=== PATIENT | female | born 1975 | race Caucasian/White ===

== ENCOUNTER 2019-08-19 19:30 | Inpatient (IN) | payer MEDICARE, MEDICAID ==
[~2019-08-19] VITALS: Ht 160 cm; Wt 83.5 kg
[2019-08-19 22:50] VITALS: BP 99/64
[2019-08-19 22:55] VITALS: BP 99/64
--- NOTE | 2019-08-19 22:55 | NUR ---
MS LIBRARY SERVICES DEAN NOTE RECEIVED PATIENT VIA GURNEY FROM 2 PANEL BUILDER. PATIENT IS A/OX4. ON OXYGEN 2L/MIN VIA NASAL CANNULA. NO S/S SOB NOTED. STATES PAIN IN LEFT HAND. IN NO APPARENT DISTRESS. IV ACCESS IN LEFT CHEST AND RIGHT CHEST BOTH PATENT AND SALINE LOCKED. RIGHT FEMORAL PERMA CATH PRESENT. LAST HD WAS 08/18/2019, 2L OUT, RECEIVES M,W,F. INITIAL ASSESSMENT COMPLETED AT THIS TIME. SKIN ASSESSMENT PARTIALLY COMPLETED D/T PATIENT WAS BEING CLEANS AND REFUSED OTHER PICTURES TO BE TAKEN UNTIL MORNING. WILL FOLLOW UP. VS AND BELONGINGS LIST COMPLETED BY COMPOSITION ROOFER. ORIENTS TO STAFF AND CALL LIGHT. BED IS LOW AND LOCKED, HOB IS ELEVATED IN SEMI FOWLERS, SIDE RIALS UP, BED ALARM ON. CALL LIGHT WITHIN REACH. WILL CONTINUE TO MONITOR.
[2019-08-20] MEDS ORDERED: MAGNESIUM HYDROXIDE 30 ML UDC PO PRN
[2019-08-20] MEDS ORDERED: ZOLPIDEM TARTRATE 5 MG TABLET PO PRN
[2019-08-20] MEDS ORDERED: ACETAMINOPHEN 325 MG TABLET PO PRN
[2019-08-20] MEDS ORDERED: DEXTROSE 50%-WATER 50 ML DISP.SYRIN IV PRN
[2019-08-20] MEDS ORDERED: ONDANSETRON HCL/PF 4 MG/2 ML VIAL IVP PRN
[2019-08-20] MEDS ORDERED: MAG HYDROX/AL HYDROX/SIMETH 30 ML UDC PO PRN
[2019-08-20] MEDS ORDERED: HYDR-4384 PO (00:08)
[2019-08-20] MEDS ORDERED: APIX2.5T PO (00:08)
[2019-08-20] MEDS ORDERED: LUBI24CA5 PO (00:08)
[2019-08-20] MEDS ORDERED: MIDO5TAB4 PO (00:08)
[2019-08-20] MEDS ORDERED: ATOR40TA PO (00:08)
[2019-08-20] MEDS ORDERED: ASPI-605 PO (00:08)
[2019-08-20] MEDS ORDERED: GABA-532 PO (00:08)
[2019-08-20] MEDS ORDERED: OMEP40CA13 PO (00:08)
[2019-08-20] MEDS ORDERED: MIDODRINE HCL (5MG) 5 MG TABLET PO ONE (02:00)
--- NOTE | 2019-08-20 02:43 | NUR ---
MS RN NOTE MD ORDERED MIDODRINE D/T PATIENT ADMITTING BLOOD PRESSURE BEING 99/64. RECEIVED CALL FROM [facility] FOR MD TO PLACE PARAMETERS FOR MEDICATION. SPOKE WITH MD AND ORDERED JUST GIVE AND NO PARAMETERS NEEDED AT THIS TIME. [facility] INFORMED TO PLEASE INSERT THE ORDER. MD MADE AWARE AND PLACED A DIFFERENT ORDER FOR SAME MED.
[2019-08-20] MEDS: MIDODRINE HCL (5MG) 5 MG TABLET PO SCH ×3 (05:40→21:22)
[2019-08-20] MEDS: MORPHINE SULFATE INJ 2 MG/ML DISP.SYRIN IV PRN ×2 (05:47→14:42)
--- NOTE | 2019-08-20 06:51 | NUR ---
MS RN NOTE PATIENT REFUSED TO TAKE REST OF PHOTOS FOR SKIN ISSUES.
[2019-08-20] MEDS: BLOOD SUGAR DIAGNOSTIC 1 EACH STRIP IN SCH ×5 (06:57→22:09)
--- NOTE | 2019-08-20 07:01 | NUR ---
MS RN NOTE PATIENT CHANGED HER MIND ABOUT ALLOWING TO TAKE PHOTOS. I WILL ENDORSE DAY SHIFT.
--- NOTE | 2019-08-20 07:14 | NUR ---
MS RN CLOSING NOTE PATIENT IN BED. A/OX4. ON OXYGEN 2L/MIN VIA NASAL CANNULA. NO SOB NOTED. PAIN MANAGED WITH MORPHINE 2MG. NO DISTRESS NOTED. IV ACCESS MAINTAINED IN LEFT CHEST AND RIGHT CHEST BOTH PATENT AND SALINE LOCKED. GOT AN ORDER FOR MIDLINE, PATIENT STILL NEEDS TO SIGN CONSENT, SHE IS HESITANT D/T KNOWING THERE WILL BE PAIN. RIGHT FEMORAL PERMA CATH PRESENT. PATIENT WANTS SKIN PICTURES CONDUCTED AFTER ALL. BED IS LOW AND LOCKED, HOB IS ELEVATED IN SEMI FOWLERS, SIDE RIALS UP, BED ALARM ON. CALL LIGHT WITHIN REACH. WILL ENDORSE TO NEXT SHIFT.
[2019-08-20 08:00] VITALS: BP 138/72
--- NOTE | 2019-08-20 08:00 | NUR ---
MS RN OPENING NOTES Received Patient asleep and resting in bed. A/O x 4. VS stable with no acute distress. Breathing even and unlabored on 2LPM via NC with no respiratory distress. Patient stated pain on left hand upon movement, otherwise Patient is comfortable. PIV on right chest and left chest clean, dry, intact and flushing well. Right femoral permacath, clean and intact. Safety precautions in place. Bed locked and set to lowest position with side rails x 2 up. All needs rendered at this time. Call light within reach. Will continue to monitor.
--- NOTE | 2019-08-20 08:35 | NUR ---
WOUND CARE CONSULT: PT REFUSED SKIN ASSESSMENT. PT COMPLAINING OF PAIN IN LEFT THUMB AND INDEX FINGER. RN TO DISCUSS WITH MD. RECOMMENDATIONS MADE FOR SKIN CARE AND PROTECTION BASED ON ADMISSION PHOTOS WHICH SHOW PURPLE INTACT AREAS TO BILATERAL HEELS AND RASHES TO GROIN, PERINEAL AND BUTTOCKS AREAS, PRESENT ON ADMISSION. DISCUSSED WITH NURSING STAFF. JOSE ISOFLEX LOW AIRLOSS BED TO BE PLACED. WILL SEE PRN. IN AGREEMENT WITH PLAN OF CARE. Addendum: 08/20/19 [address] Amended: Links added. Addendum: 08/20/19 at [address] SPOKE WITH DR FOSTER REGARDING PAIN IN LEFT THUMB AND INDEX FINGER. SHE WILL EVALUATE PT.
[2019-08-20] MEDS: PANTOPRAZOLE 40 MG TABLET.DR PO SCH (09:24)
[2019-08-20] MEDS: CLOTRIMAZOLE 1% 15 GM TUBE TP SCH ×2 (09:25→16:48)
--- NOTE | 2019-08-20 11:31 | NUR ---
MS RN NOTES Patient refused Midline Placement. Explained risks and benefits of Midline. Patient still refused. Patient in stable condition. Will continue to monitor.
[2019-08-20 11:53] LABS: BASOPHILS % (AUTO) 0.6 % (0.0-2.0); EOSINOPHILS % (AUTO) 4.1 % (0.0-6.0); HEMATOCRIT 32 % (33-45); HEMOGLOBIN 10.3 g/dL (11.5-14.8); LYMPHOCYTES # (AUTO) 1.1 /CMM (0.8-4.8); LYMPHOCYTES % (AUTO) 13.6 % (20.0-44.0); MEAN CORPUSCULAR HGB CONC 32 g/dl (31.0-36.0); MEAN CORPUSCULAR VOLUME 90 fL (82-100); MONOCYTES # (AUTO) 0.7 /CMM (0.1-1.30); MONOCYTES % (AUTO) 9.1 % (2.0-12.0); NEUTROPHILS # (AUTO) 5.8 /CMM (1.8-8.9); NEUTROPHILS % (AUTO) 72.6 % (43.0-81.0); PLATELET COUNT (AUTO) 251 /CMM (150-450)
[2019-08-20 12:00] LABS: CALCIUM, SERUM 10.3 mg/dL (8.5-10.1); POTASSIUM 4.4 mmol/L (3.5-5.1)
[2019-08-20] MEDS ORDERED: PIPERACILLIN /TAZOBACTAM 2.25 G in IV D5W 50 ML IV SCH (12:30)
[2019-08-20 12:50] LABS: MAGNESIUM 2.2 mg/dL (1.8-2.4)
--- NOTE | 2019-08-20 12:53 | NUR ---
PRELIM FINDINGS ON UPPER EXT VENOUS EXAM SHOWED POSITIVE FOR THROMBUS AT LT CEPH V, RT IJV, RT BRACH V. ADVISED RN OF INITIAL RESULTS.
[2019-08-20 12:55] LABS: CREATININE 12.4 mg/dL (0.6-1.3)
[2019-08-20 12:56] LABS: PHOSPHORUS 11.6 mg/dL (2.5-4.9)
[2019-08-20] MEDS ORDERED: HEPARIN INFUSION/D5W 500 ML IV PRN (13:00)
--- NOTE | 2019-08-20 13:08 | NUR ---
MS RN NOTES Notified Argenis YOUNG of critical labs, Phosphorous 11.6, Creatinine 12.4, and (+) for bilateral upper extremity DVT. Patient actively bleeding from the nose. Per MD, may discontinue IV Heparin Drip. Order noted and carried out. Patient in stable condition. Will continue to monitor.
[2019-08-20 16:00] VITALS: BP 94/46
[2019-08-20] MEDS ORDERED: LUBIPROSTONE PO SCH (17:00)
--- NOTE | 2019-08-20 17:25 | NUR ---
MS RN NOTES Patient refused CTA of Left Upper Extremity. Explained risks and benefits of procedure. Patient still refused. Patient in stable condition. Will continue to monitor.
[2019-08-20] MEDS: SEVELAMER CARBONATE 0.8 GM POWD.PACK GT SCH (17:28)
[2019-08-20] MEDS: ATORVASTATIN 40 MG TABLET PO SCH ×2 (17:28)
--- NOTE | 2019-08-20 17:28 | NUR ---
MS RN NOTES Patient undergoing dialysis at this time. Non-administered evening medications. Patient in stable condition. Will continue to monitor.
--- NOTE | 2019-08-20 17:30 | NUR ---
MS RN NOTES BS - 177, Patient refused insulin coverage. Patient in stable condition and undergoing dialysis at this time. Will continue to monitor.
[2019-08-20] MEDS: INSULIN REGULAR, HUMAN 100 UNIT/ML 3 ML VIAL SQ PRN ×2 (17:41→22:17)
--- NOTE | 2019-08-20 18:04 | NUR ---
MS RN NOTES Per plant inspector request, notified Argenis YOUNG for order of Benadryl 25mg IVP and 12.5GM Albumin 25% 100ml IV. Per MD, may place these orders. Orders noted and carried out. Patient in stable condition at this time. Will continue to monitor.
[2019-08-20] MEDS ORDERED: diphenhydrAMINE HCL 50 MG/ML VIAL IV ONE (18:30)
--- NOTE | 2019-08-20 18:43 | NUR ---
MS RN CLOSING NOTES Patient awake and resting in bed. A/O x 4. VS stable with no acute distress. Breathing even and unlabored on 2LPM via NC with no respiratory distress. Patient stated pain on left hand upon movement, otherwise Patient is comfortable. 22g PIV on right subclavian and 20g PIV on left subclavian clean, dry, intact and flushing well. Right femoral permacath, clean and intact. Safety precautions in place. Bed locked and set to lowest position with side rails x 2 up. All needs rendered at this time. Call light within reach. Will endorse plan of care to oncoming shift.
[2019-08-20] MEDS ORDERED: ALBUMIN 25% 12.5 GM/50 ML BOTTLE IV ONE (19:00)
[2019-08-20] MEDS ORDERED: ALBUMIN 25% 12.5 GM in PREMIX 1 EA IV ONE (19:00)
--- NOTE | 2019-08-20 19:44 | NUR ---
MS RN NOTES PATIENT IN BED, AWAKE, ALERT AND ORIENTED X 4. BREATHING EVEN AND UNLABORED ON NASAL CANNULA 2L. DENIES ACUTE PAIN, NO ACUTE RESPIRATORY DISTRESS. IV ON R CHEST 22G SL, AND L CHEST 20G SL, BOTH CLEAN DRY AND INTACT. SHOWS NO SIGNS OF INFILTRATION NO REDNESS. R FEMORAL PERMACATH CLEAN DRY AND INTACT. DIALYSIS COMPLETED 08/20 1L OUT AT 1830. SAFETY PRECAUTION IN PLACE. BED IN LOWEST POSITION, LOCKED, AND CALL LIGHT KEPT WITHIN REACH. WILL CONTINUE TO MONITOR.
[2019-08-20 20:00] VITALS: BP 103/62
--- NOTE | 2019-08-20 20:45 | NUR ---
Met with patient, she is alert, has hx of ESRD and Left BKA. States she resides with her mom in [place]. She was able to ambulate around household with her left prosthesis. She uses her wheelchair for outside household mobility. Available DME: glucometer, walker, shower chair and wheelchair. States she is independent with her adl's. She receives hemodialysis every MWF chairtime 3:30am at [facility] [phone] and has HD transportation. She plan to return home, family will provide ride when discharge. Addendum: 08/20/19 at 2045 by LEYDI NOYOLA RN Amended: Links added.
[2019-08-20] MEDS ORDERED: FEE PK DOSING 1 MIN EA MC ONE (20:46)
[2019-08-20] MEDS ORDERED: VANCOMYCIN POST DIALYSIS 500MG IV PRN ×2 (21:00)
[2019-08-20] MEDS ORDERED: VANCOMYCIN 1 GM in IV D5W 250ml IV ONE (21:00)
[2019-08-20] MEDS: GABAPENTIN 100 MG CAPSULE PO SCH ×2 (21:23)
[2019-08-21] MEDS: MIDODRINE HCL (5MG) 5 MG TABLET PO SCH ×3 (05:00→22:00)
[2019-08-21] MEDS: BLOOD SUGAR DIAGNOSTIC 1 EACH STRIP IN SCH ×4 (06:41→22:02)
[2019-08-21] MEDS: MORPHINE SULFATE INJ 2 MG/ML DISP.SYRIN IV PRN ×2 (07:02→17:30)
[2019-08-21] MEDS: INSULIN REGULAR, HUMAN 100 UNIT/ML 3 ML VIAL SQ PRN ×4 (07:11→22:05)
--- NOTE | 2019-08-21 07:19 | NUR ---
MS RN NOTES PATIENT IN BED, AWAKE, ALERT AND ORIENTED X 4. BREATHING EVEN AND UNLABORED ON NASAL CANNULA 2L. DENIES ACUTE PAIN, NO ACUTE RESPIRATORY DISTRESS. IV ON R CHEST 22G SL, AND L CHEST 20G SL, BOTH CLEAN DRY AND INTACT. SHOWS NO SIGNS OF INFILTRATION NO REDNESS. R FEMORAL PERMACATH CLEAN DRY AND INTACT. ALL DUE MEDICATIONS. PATIENT REFUSED REPOSITIONING. EDUCATED IMPORTANCE OF TURNING Q2H, PT STILL REFUSED. PATIENT REFUSED SKIN ASSESSMENT PICTURES. SAFETY PRECAUTION IN PLACE. BED IN LOWEST POSITION, LOCKED, AND CALL LIGHT KEPT WITHIN REACH. WILL CONTINUE TO MONITOR.
[2019-08-21 08:00] VITALS: BP 80/52
--- NOTE | 2019-08-21 08:00 | NUR ---
MS RN OPENING NOTES Received Patient asleep and resting in bed. A/O x 4. VS stable with no acute distress. Breathing even and unlabored on 2LPM via NC with no respiratory distress. No signs and symptoms of pain at this time. 20g PIV on right subclavian clean, dry, intact and flushing well. 22g PIV on left subclavian clean, dry, and intact but noted leaking upon flushing. Patient refused to remove PIV at this time. Right femoral permacath, clean and intact. Safety precautions in place. Bed locked and set to lowest position with side rails x 2 up. All needs rendered at this time. Call light within reach. Will continue to monitor.
[2019-08-21] MEDS: PANTOPRAZOLE 40 MG TABLET.DR PO SCH ×2 (08:57→10:15)
[2019-08-21] MEDS: SEVELAMER CARBONATE 0.8 GM POWD.PACK GT SCH (08:58)
[2019-08-21] MEDS: CLOTRIMAZOLE 1% 15 GM TUBE TP SCH ×2 (08:59→17:34)
--- NOTE | 2019-08-21 09:00 | NUR ---
MS RN NOTES Patient refused AM medications. Per Patient, "I am sleeping! I need to stretch before I do anything. I do not want to take my medications now." Explained risks and benefits of medications. Patient still refused at this time. Patient in stable condition and sleeping. Will continue to monitor.
[2019-08-21] MEDS: CINACALCET HCL 30 MG TABLET PO SCH ×2 (10:03→10:15)
[2019-08-21] MEDS: SEVELAMER CARBONATE 800 MG TABLET PO SCH ×2 (12:21→17:33)
[2019-08-21 16:00] VITALS: BP 95/59
[2019-08-21] MEDS: ATORVASTATIN 40 MG TABLET PO SCH (17:33)
--- NOTE | 2019-08-21 19:00 | NUR ---
RN MS OPENING NOTES RECEIVE PATIENT IN BED AWAKE ALERT AND ORIENTED X3, RESPIRATIONS EVEN AND UNLABORED WITH EQUAL RISE AND FALL OF CHEST, DENIES ANY PAIN OR DISCOMFORT AT THIS TIME, IV SITE TO LEFT SUBCLAVIAN #20 G INTACT AND PATENT, NO REDNESS, NO INFILTRATION PRESENT, LEFT SUBCLAVIAN #22 G INTACT AND PATENT , NO REDNESS, NO INFILTRATION PRESENT, HD SITE TO RIGHT FEMORAL INTACT DRESSING IS CLEAN AND DRY, ALL NEEDS ATTENDED AT THIS TIME, ORIENTED TO STAFF AND CALL LIGHT AND KEPT WITHIN REACH, SAFETY PRECAUTIONS IN PLACE, LOW BED AND LOCKED, WILL CONTINUE TO MONITOR FOR EFFECTIVENESS.
--- NOTE | 2019-08-21 19:38 | NUR ---
MS RN CLOSING NOTES Patient awake and resting in bed. A/O x 4. VS stable with no acute distress. Breathing even and unlabored on 2LPM via NC with no respiratory distress. No signs and symptoms of pain at this time. 20g PIV on right subclavian clean, dry, intact and flushing well. 22g PIV on left subclavian clean, dry, and intact but noted leaking upon flushing. Patient refused to remove PIV at this time. Right femoral permacath, clean and intact. Safety precautions in place. Bed locked and set to lowest position with side rails x 2 up. All needs rendered at this time. Call light within reach. Will endorse plan of care to oncoming shift.
[2019-08-21 20:00] VITALS: BP 119/74
[2019-08-21] MEDS: GABAPENTIN 100 MG CAPSULE PO SCH (22:00)
[2019-08-22] MEDS: MORPHINE SULFATE INJ 2 MG/ML DISP.SYRIN IV PRN ×3 (03:25→21:41)
--- NOTE | 2019-08-22 03:31 | NUR ---
rn ms notes patient complaint of pain to left hand 02/17 requesting for pain medication morphine, vs wnl morphine given as ordered patient repositioned, will continue to monitor for effectiveness.
[2019-08-22] MEDS: MIDODRINE HCL (5MG) 5 MG TABLET PO SCH ×3 (05:46→21:31)
[2019-08-22] MEDS: BLOOD SUGAR DIAGNOSTIC 1 EACH STRIP IN SCH ×4 (06:26→21:31)
[2019-08-22] MEDS: INSULIN REGULAR, HUMAN 100 UNIT/ML 3 ML VIAL SQ PRN ×4 (06:27→21:37)
--- NOTE | 2019-08-22 06:50 | NUR ---
RN MS OPENING NOTES PATIENT IN BED AWAKE ALERT AND ORIENTED X3, RESPIRATIONS EVEN AND UNLABORED WITH EQUAL RISE AND FALL OF CHEST, DENIES ANY PAIN OR DISCOMFORT AT THIS TIME, IV SITE TO LEFT SUBCLAVIAN #20 G INTACT AND PATENT, NO REDNESS, NO INFILTRATION PRESENT, LEFT SUBCLAVIAN #22 G INTACT AND PATENT , NO REDNESS, NO INFILTRATION PRESENT, HD SITE TO RIGHT FEMORAL INTACT DRESSING IS CLEAN AND DRY PER HD NURSE WILL NOTIFY AIR CONDITIONING UNIT TESTER MD OF MALFUNCTION CATHETER SITE AND UNABLE TO SO HD , ALL NEEDS ATTENDED AT THIS TIME, CALL LIGHT KEPT WITHIN REACH, SAFETY PRECAUTIONS IN PLACE, LOW BED AND LOCKED, WILL CONTINUE TO MONITOR FOR EFFECTIVENESS. BLOOD PRESSURE INCREASING AFTER HD ATTEMPT STOP TO 90/41, HR 85, ASYMPTOMATIC, PER PATIENT BLOOD PRESSURE USUALLY RUNS LOW. REMAINS STABLE AT THIS TIME.
--- NOTE | 2019-08-22 06:57 | NUR ---
RN MS NOTES HD NURSE UNABLE TO PROVIDED SCHEDULED DIALYSIS HD NURSE STATES" CATHETER SITE IS NOT WORKING AND WILL NOTIFY CRAFT DEMONSTRATOR MD" PATIENT HD ALSO STOPPED DUE TO DECREASE IN BP WHEN ATTEMPTED TO DO HD. WILL CONTINUE TO MONITOR AND ENDORSE TO NEXT SHIFT.
--- NOTE | 2019-08-22 07:35 | NUR ---
M/S RN NOTES PATIENT RESTING IN BED, NO RESPIRATORY DISTRESS, NO C/O PAIN AT THIS TIME. IV ACCESS SITES INTACT AND PATENT. PATIENT'S NEEDS ATTENDED, BED ON LOWEST LOCKED POSITION, CALL LIGHT WITHIN REACH. WILL CONTINUE TO MONITOR.
[2019-08-22 08:00] VITALS: BP 107/57
[2019-08-22] MEDS: SEVELAMER CARBONATE 800 MG TABLET PO SCH ×3 (08:44→17:22)
[2019-08-22] MEDS: CLOTRIMAZOLE 1% 15 GM TUBE TP SCH ×2 (08:45→17:24)
[2019-08-22] MEDS ORDERED: ALTEPLASE CATHFLO 2 MG/VIAL XX ONE ×2 (10:30→11:00)
--- NOTE | 2019-08-22 11:00 | NUR ---
M/S RN NOTES RONA ROBERTO AT BEDSIDE ADMINISTERING CATHFLO THROUGH PATIENT'S HD SITE.
[2019-08-22 12:15] LABS: BASOPHILS % (AUTO) 0.2 % (0.0-2.0); EOSINOPHILS % (AUTO) 3.9 % (0.0-6.0); HEMATOCRIT 24 % (33-45); HEMOGLOBIN 7.5 g/dL (11.5-14.8); LYMPHOCYTES # (AUTO) 1.3 /CMM (0.8-4.8); LYMPHOCYTES % (AUTO) 19.6 % (20.0-44.0); MEAN CORPUSCULAR HGB CONC 32 g/dl (31.0-36.0); MEAN CORPUSCULAR VOLUME 90 fL (82-100); MONOCYTES # (AUTO) 0.5 /CMM (0.1-1.30); MONOCYTES % (AUTO) 8.1 % (2.0-12.0); NEUTROPHILS # (AUTO) 4.5 /CMM (1.8-8.9); NEUTROPHILS % (AUTO) 68.2 % (43.0-81.0); PLATELET COUNT (AUTO) 224 /CMM (150-450); RED BLOOD CELL COUNT(AUTO) 2.63 MIL/uL (4.0-5.2); WHITE BLOOD COUNT (AUTO) 6.6 K/uL (4.3-11.0)
[2019-08-22 12:28] LABS: ALBUMIN 2.5 g/dL (3.4-5.0); BILIRUBIN,TOTAL 0.3 mg/dL (0.2-1.0); CALCIUM, SERUM 9.7 mg/dL (8.5-10.1); MAGNESIUM 2.3 mg/dL (1.8-2.4); POTASSIUM 4.4 mmol/L (3.5-5.1)
--- NOTE | 2019-08-22 12:30 | NUR ---
M/S RN NOTES REPORTED CRITICAL LAB VALUES BY DANIELLA CORREA 102, CREAT 13.9, PHOS 11.5. INFORMED WENDY BEE.
[2019-08-22 12:33] LABS: CREATININE 13.9 mg/dL (0.6-1.3); PHOSPHORUS 11.5 mg/dL (2.5-4.9)
[2019-08-22] MEDS ORDERED: EPOETIN ALFA (10,000 UNIT) 10,000 UNIT/ML VIAL IV ONE (15:00)
[2019-08-22] MEDS ORDERED: HEPARIN INFUSION/D5W 500 ML IV PRN (15:00)
[2019-08-22 16:00] VITALS: BP 112/56
[2019-08-22] MEDS: ATORVASTATIN 40 MG TABLET PO SCH (17:22)
[2019-08-22] MEDS: APIXABAN 2.5 MG TABLET PO SCH (17:23)
--- NOTE | 2019-08-22 18:40 | NUR ---
M/S RN NOTES PATIENT AWAKE IN BED, NO RESPIRATORY DISTRESS, NO C/O PAIN AT THIS TIME. SKIN WARM TO TOUCH. IV ACCESS SITES INTACT AND PATENT. PATIENT'S NEEDS ATTENDED, BED ON LOWEST LOCKED POSITION, CALL LIGHT WITHIN REACH. WILL ENDORSE TO ONCOMING NURSE.
[2019-08-22 20:00] VITALS: BP 112/79
[2019-08-22 20:40] VITALS: BP 112/79
[2019-08-22] MEDS: GABAPENTIN 100 MG CAPSULE PO SCH (21:31)
--- NOTE | 2019-08-22 21:41 | NUR ---
RN MS NOTES PATIENT COMPLAINT OF PAIN 8/10 TO LEFT HAND REQUESTING FOR MORPHINE VS WNL MORPHINE GIVEN ORDERED WILL CONTINUE TO MONITOR, REPOSITIONED FOR COMFORT.
--- NOTE | 2019-08-23 | NUR ---
RN MS OPENING NOTES PATIENT IN BED AWAKE ALERT AND ORIENTED X3, RESPIRATIONS EVEN AND UNLABORED WITH EQUAL RISE AND FALL OF CHEST, DENIES ANY PAIN OR DISCOMFORT AT THIS TIME, IV SITE TO LEFT SUBCLAVIAN #20 G INTACT AND PATENT, NO REDNESS, NO INFILTRATION PRESENT, LEFT SUBCLAVIAN #22 G INTACT AND PATENT , NO REDNESS, NO INFILTRATION PRESENT, HD SITE TO RIGHT FEMORAL INTACT DRESSING IS CLEAN AND DRY , ALL NEEDS ATTENDED AT THIS TIME, CALL LIGHT KEPT WITHIN REACH, SAFETY PRECAUTIONS IN PLACE, LOW BED AND LOCKED, WILL CONTINUE TO MONITOR.
--- NOTE | 2019-08-23 06:00 | NUR ---
RN MS NOTES PATIENT COMPLAINT OF PAIN TO LEFT HAND 7-03/20 REQUESTED FOR PAIN MEDICATION. MORPHINE PRN GIVEN ORDERED, VS WNL WILL CONTINUE TO MONITOR FOR EFFECTIVENESS.
[2019-08-23] MEDS: MORPHINE SULFATE INJ 2 MG/ML DISP.SYRIN IV PRN ×2 (06:02→11:18)
[2019-08-23] MEDS: MIDODRINE HCL (5MG) 5 MG TABLET PO SCH ×3 (06:02→21:57)
--- NOTE | 2019-08-23 06:27 | NUR ---
RN MS NOTES PATIENT REFUSED AM LABS ORDERED DESPITE EDUCATION, PATIENT STATES " THEY CAN DO THEM WITH DIALYSIS". ATTEMPTED TO EXPLAIN MD LAB ORDERS, PATIENT DID NOT WANT LABS DRAWN.
[2019-08-23] MEDS: INSULIN REGULAR, HUMAN 100 UNIT/ML 3 ML VIAL SQ PRN ×4 (06:33→22:49)
[2019-08-23] MEDS: BLOOD SUGAR DIAGNOSTIC 1 EACH STRIP IN SCH ×4 (06:43→22:36)
--- NOTE | 2019-08-23 07:30 | NUR ---
RN OPENING NOTES RECEIVED PATIENT IN BED RESTING. A/OX3, ABLE TO MAKE NEEDS KNOWN. NOT IN ANY FORM OF DISTRESS. NO SOB. DENIED PAIN OR DISCOMFORT AT THIS TIME. IV ACCESS INTACT AND PATENT. KEP TPATIENT SAFE AND COMFORTABLE. BED IN LOW/LOCKED POSITION, SIDERAILS UPX2, CALL LIGHT IN REACH. WILL CONTINUE TO MONITOR ACCORDINGLY.
[2019-08-23 08:00] VITALS: BP 114/71
[2019-08-23] MEDS: APIXABAN 2.5 MG TABLET PO SCH ×2 (09:00→17:00)
[2019-08-23] MEDS: CLOTRIMAZOLE 1% 15 GM TUBE TP SCH ×2 (09:41→18:06)
[2019-08-23] MEDS: PANTOPRAZOLE 40 MG TABLET.DR PO SCH (09:42)
[2019-08-23] MEDS: CINACALCET HCL 30 MG TABLET PO SCH (09:42)
[2019-08-23] MEDS: SEVELAMER CARBONATE 800 MG TABLET PO SCH ×4 (09:43→18:05)
--- NOTE | 2019-08-23 09:50 | NUR ---
RN NOTES PATIENT REFUSED ELIQUIS. EXPLAIN RISK AND BENEFIT BUT STILL REFUSED. PER PATIENT SHE'LL WAIT AFTER DIALYSIS.
[2019-08-23] MEDS: Z GUARD REMEDY 2 OZ OINT TP SCH ×2 (13:32→22:36)
[2019-08-23 16:00] VITALS: BP 123/70
[2019-08-23] MEDS: ATORVASTATIN 40 MG TABLET PO SCH ×2 (18:00→18:04)
--- NOTE | 2019-08-23 18:02 | NUR ---
rn notes patient noted having nosebleed. Jeevan Munguia DNP made aware. Per Jeevan, hold Eliquis for now and cont to monitor patient.
--- NOTE | 2019-08-23 19:35 | NUR ---
RN CLOSING NOTES PATIENT IN STABLE CONDITION. ALL NEEDS ATTENDED AND PROVIDED. ALL DUE MEDICATIONS GIVEN ORDERED. KEPT PATIENT SAFE AND COMFORTABLE. BED IN LOW/LOCKED POSITION. SIDERAILS UPX2, CALL LIGHT IN REACH. ENDORSED TO KELVIN REA FOR ALYSSA.
[2019-08-23 20:00] VITALS: BP 122/83
[2019-08-23 20:37] VITALS: BP 112/73
[2019-08-23] MEDS: GABAPENTIN 100 MG CAPSULE PO SCH (21:57)
--- NOTE | 2019-08-23 22:07 | NUR ---
RN MS NOTES PATIENT REQUESTED FOR BENADRYL IV STATES SHE GETS ANXIOUS AND MUST HAVE IT HD NURSE REQUEST FOR ALBUMIN PANKAJ MADE AWARE NEW ORDER FOR 25% ALBUMIN 100ML WITH HD AND BENADRYL 25MG IV Q6HR PRN
[2019-08-23] MEDS ORDERED: diphenhydrAMINE HCL 50 MG/ML VIAL IV PRN (22:30)
[2019-08-23] MEDS ORDERED: ALBUMIN 25% 25 GM in PREMIX 1 EA IV PRN (22:30)
[2019-08-23 22:38] LABS: BASOPHILS % (AUTO) 0.5 % (0.0-2.0); HEMATOCRIT 26 % (33-45); HEMOGLOBIN 8.2 g/dL (11.5-14.8); LYMPHOCYTES # (AUTO) 1.2 /CMM (0.8-4.8); LYMPHOCYTES % (AUTO) 15.4 % (20.0-44.0); MEAN CORPUSCULAR HGB CONC 32 g/dl (31.0-36.0); MEAN CORPUSCULAR VOLUME 90 fL (82-100); MONOCYTES # (AUTO) 0.4 /CMM (0.1-1.30); MONOCYTES % (AUTO) 5.3 % (2.0-12.0); NEUTROPHILS # (AUTO) 5.9 /CMM (1.8-8.9); NEUTROPHILS % (AUTO) 76.8 % (43.0-81.0); PLATELET COUNT (AUTO) 316 /CMM (150-450); RED BLOOD CELL COUNT(AUTO) 2.85 MIL/uL (4.0-5.2); WHITE BLOOD COUNT (AUTO) 7.7 K/uL (4.3-11.0)
[2019-08-23] MEDS ORDERED: ALBUMIN 25% 100 ML IV ONE (22:51)
[2019-08-23 22:56] LABS: ALBUMIN 2.6 g/dL (3.4-5.0); BILIRUBIN,TOTAL 0.4 mg/dL (0.2-1.0); CALCIUM, SERUM 9.3 mg/dL (8.5-10.1); MAGNESIUM 2.3 mg/dL (1.8-2.4); POTASSIUM 5.3 mmol/L (3.5-5.1); TOTAL PROTEIN, SERUM 8.4 g/dL (6.4-8.2)
[2019-08-23 23:01] LABS: CREATININE 15.9 mg/dL (0.6-1.3)
--- NOTE | 2019-08-23 23:08 | NUR ---
RN MS NOTES RECEIVED CALL FROM LAB WITH CRITICAL RESULTS FOR BUN 118, CREATINE 15.9, PHOS 12.9, PATIENT IS GETTING DIALYSIS AT THIS TIME, NO FURTHER ORDERS.
[2019-08-23] MEDS ORDERED: MORPHINE SULFATE INJ 2 MG/ML DISP.SYRIN IV PRN (23:30)
[2019-08-23] MEDS ORDERED: HYDROMORPHONE INJ 0.5 MG/0.5 ML SYRINGE IV PRN (23:30)
[2019-08-23] MEDS ORDERED: KETOROLAC TROMETHAMINE INJ 30 MG/ML VIAL IV PRN (23:30)
--- NOTE | 2019-08-24 05:58 | NUR ---
rn ms notes refused am labs.despite education
[2019-08-24] MEDS: MIDODRINE HCL (5MG) 5 MG TABLET PO SCH ×3 (06:04→21:46)
[2019-08-24] MEDS: BLOOD SUGAR DIAGNOSTIC 1 EACH STRIP IN SCH ×4 (06:48→22:01)
[2019-08-24] MEDS: INSULIN REGULAR, HUMAN 100 UNIT/ML 3 ML VIAL SQ PRN ×3 (06:50→22:05)
--- NOTE | 2019-08-24 07:04 | NUR ---
RN MS CLOSING NOTES PATIENT IN BED AWAKE ALERT AND ORIENTED X3, RESPIRATIONS EVEN AND UNLABORED WITH EQUAL RISE AND FALL OF CHEST, DENIES ANY PAIN OR DISCOMFORT AT THIS TIME, IV SITE TO LEFT SUBCLAVIAN #20 G INTACT AND PATENT, NO REDNESS, NO INFILTRATION PRESENT, LEFT SUBCLAVIAN #22 G INTACT AND PATENT , NO REDNESS, NO INFILTRATION PRESENT, HD SITE TO RIGHT FEMORAL INTACT DRESSING IS CLEAN AND DRY , ALL NEEDS ATTENDED AT THIS TIME, CALL LIGHT KEPT WITHIN REACH, SAFETY PRECAUTIONS IN PLACE, LOW BED AND LOCKED, WILL CONTINUE TO MONITOR AND ENDORSE TO NEXT SHIFT, ALL NEEDS WERE ATTENDED. NO CHANGES NOTED THROUGH SHIFT. TOLERATED HD WELL.
--- NOTE | 2019-08-24 07:15 | NUR ---
MS RN NOTES PATIENT IN BED ALERT ORIENTED X 4. NO ACUTE DISTRESS NOTED. BREATHING UNLABORED. NO SOB NOTED.SAFETY MEASURES IN PLACE. CALL LIGHT WITHIN REACH. WILL CONTINUE TO MONITOR ACCORDINGLY.
--- NOTE | 2019-08-24 07:21 | NUR ---
RN MS NOTES BM NOTED HANK LIKE , NO WATERY STOOL NOTED THIS SHIFT.
[2019-08-24] MEDS: PANTOPRAZOLE 40 MG TABLET.DR PO SCH (07:30)
[2019-08-24 08:00] VITALS: BP 76/43
[2019-08-24] MEDS: SEVELAMER CARBONATE 800 MG TABLET PO SCH ×3 (08:00→18:00)
--- NOTE | 2019-08-24 08:00 | NUR ---
MS RN NOTES PATIENT REFUSED TO TAKE PANTOPRAZOLE AND RENVELA DESPITE OF EXPLANATION OF RISKS AND BENEFITS.
--- NOTE | 2019-08-24 08:08 | NUR ---
MS REA NOTES PATIENT CAME BACK FROM RECOVERY ROOM WITH STABLE VITAL SIGNS. ALERT ORIENTED X 4. NO ACUTE DISTRESS NOTED. BREATHING UNLABORED. DENIED ANY PAIN AT THIS TIME. WITH ABDOMINAL 3 SURGICAL DRESSING CLEAN DRY AND INTACT. RECEIVED NEW ORDERS FROM ASIYA BAUTISTA, NOTED AND CARRIED OUT. SAFETY MEASURES IN PLACE. WILL CONTINUE TO MONITOR ACCORDINGLY. Addendum: 08/24/19 at 0828 by JOSE TELLO RN DISREGARD ABOVE NOTES, WRONG PATIENT.
[2019-08-24] MEDS: CINACALCET HCL 30 MG TABLET PO SCH (09:00)
[2019-08-24] MEDS: APIXABAN 2.5 MG TABLET PO SCH ×2 (09:00→17:00)
--- NOTE | 2019-08-24 09:00 | NUR ---
MS RN NOTES PATIENT REFUSED TO TAKE MEDICATIONS DESPITE OF EXPLANATION OF RISKS AND BENEFITS. HOLD ELIQUIS PER MD ORDER DUE TO NOSE BLEED EPISODE YESTERDAY.
[2019-08-24] MEDS: CLOTRIMAZOLE 1% 15 GM TUBE TP SCH ×2 (09:06→17:00)
[2019-08-24] MEDS: Z GUARD REMEDY 2 OZ OINT TP SCH ×2 (09:06→21:46)
--- NOTE | 2019-08-24 10:21 | NUR ---
MS RN NOTES SEEN AND EVALUATED BY DR GEORGIANA MINER WITH NEW ORDERS MADE FOR STAT EKG. PATIENT NOTED WITH LOW BLOOD PRESSURE, REFUSING BLOOD DRAW, REFUSING MEDICATION TAKEN AND REFUSING HEMODIALYSIS DESPITE OF EXPLANATION OF RISKS AND BENEFITS, DR MINER AWARE AND DR HAILEY MARCANO MADE AWARE PRESENT ON THE FLOOR.
[2019-08-24 10:25] VITALS: BP 84/64
--- NOTE | 2019-08-24 10:30 | NUR ---
MS RN NOTES [facility] NURSE CALLED REGARDING PATIENT NOTIFIED INFECTION CONTROL PAZ REA SAID SHE WILL TAKE CARE OF IT AND FOLLOW UP WITH [facility] NURSE.
[2019-08-24] MEDS: HYDROCORTISONE SOD SUCCINATE 100 MG/2 ML VIAL IV SCH ×3 (11:00→18:00)
--- NOTE | 2019-08-24 11:20 | NUR ---
MS RN NOTES PATIENT TRANSFER TO DANE ROOM 118-2 VIA ACLS WITH STABLE VITAL SIGNS. NO ACUTE RESPIRATORY DISTRESS NOTED, BREATHING UNLABORED. PATIENT ALERT ORIENTED X 4, DENIED ANY PAIN. REPORT GIVEN TO DAMARI REA, RN VERBALIZED UNDERSTANDING. ALL BELONGINGS TAKEN WITH THE PATIENT. SAFETY MEASURES IN PLACE.
--- NOTE | 2019-08-24 11:25 | NUR ---
MS RN NOTE: PATIENT TRASFERRED TO ROOM 118-2. IN STABLE CONDITION, NOTED REFUSAL WITH BODY CHECK, PROCEDURES AND HX TAKING
--- NOTE | 2019-08-24 11:26 | NUR ---
RN NOTE: SPOKE TO DR. MEDINA ABOUT PATIENT'S REFUSAL OF LAB DRAWS ORDERED. ACKNOWLEDGED SITUATION AND ORDERED FOR PSYCH CONSULT.
[2019-08-24 12:00] VITALS: BP 91/25
--- NOTE | 2019-08-24 14:00 | NUR ---
rn note: patient refused due medication for 1300, refused insulin for blood sugar of 341. risks and benefits explained, offered x3. still refused,.
[2019-08-24 16:00] VITALS: BP 113/37
--- NOTE | 2019-08-24 18:30 | NUR ---
RN NOTE: PAGED DR. DONALDSON TO INFORM OF PATIENT'S BLOOD SUGAR LEVEL OF 408. PATIENT PRESENTING WITH NO ADVERSE S/SX OF HYPERGLYCEMIA. 10 UNITS OF REG INSULIN PER SLIDING SCALE GIVEN. AWAITING CALL BACK.
--- NOTE | 2019-08-24 18:38 | NUR ---
RN NOTE: DR. DONALDSON CALLED BACK. INFORMED OF SITUATION. ACKNOWLEDGED AND INFORMED TO CONTINUE MONITORING BLOOD SUGAR OF PATIENT.
--- NOTE | 2019-08-24 19:00 | NUR ---
RN NOTE: PATIENT INITIALLY AGREED FOR RENVELA ADMINISTRATION BUT CHANGED MIND DURING ADMINISTRATION. OPENED TABLETS WASTED AND UNOPENED MEDICATIONS RETURNED. WITNESSED BY RONA CHICAS
--- NOTE | 2019-08-24 19:20 | NUR ---
MS RN CLOSING NOTES: PATIENT IN BED ASLEEP AND AROUSES EASILY TO VERBAL STIMULI. ON O2 VIA NC @ 2LPM, TOLERATING WELL. BREATHING EVEN AND UNLABORED, NO SOB/ACUTE DISTRESS NOTED AT THIS TIME, IV SITE TO RIGHT SUBCLAVIAN #20 G AND LEFT SUBCLAVIAN #22 PATENT AN INTACT. HD SITE TO RIGHT FEMORAL IN PLACE. NO PAIN REPORTED AT THIS TIME. NEEDS ATTENDED AND ANTICIPATED. PATIENT WITH NO FOOD INTAKE FOR LUNCH AND DINNER DUE TO REFUSAL. CONTINUED BLOOD SUGAR MONITORING FOR PATIENT PER DR. DONALDSON. DR. ALFARO AWARE OF PATIENT'S LATEST HEMODIALYSIS REFUSAL. CALL LIGHT WITHIN REACH, SAFETY PRECAUTIONS IN PLACE, BED LOCKED, LOW POSITION AND AT SEMI-LEAHY'S POSITION. ENDORSED TO NIGHT NURSE FOR ALYSSA.
--- NOTE | 2019-08-24 19:30 | NUR ---
RONA MS CLOSING NOTES, PATIENT IN BED ASLEEP BUT AROUSES EASILY TO VERBAL STIMULI, , BREATHING EVEN AND UNLABORED, NO SOB/ACUTE DISTRESS NOTED AT THIS TIME, IV SITE TO LEFT SUBCLAVIAN #20 G AND LEFT SUBCLAVIAN #22 PATENT AN INTACT, HD SITE TO RIGHT FEMORAL IN PLACED, CALL LIGHT WITHIN REACH, SAFETY PRECAUTIONS IN PLACE, BED LOCKED AND LOW POSITION, WILL CONTINUE TO MONITOR CLOSELY. Addendum: 08/24/19 at 2044 by DEVORAH MARADIAGA RN PATIENT WITH PENDING PSYCH CONSULT. AWAITING PROVIDER VISIT.
[2019-08-24] MEDS: GABAPENTIN 100 MG CAPSULE PO SCH (21:56)
[2019-08-25] VITALS: BP 99/41
[2019-08-25 04:00] VITALS: BP 92/46
[2019-08-25] MEDS: MIDODRINE HCL (5MG) 5 MG TABLET PO SCH ×3 (05:23→21:25)
--- NOTE | 2019-08-25 07:00 | NUR ---
PERSONAL INJURY ATTORNEY NOTES PATIENT IS AWAKE BUT EASILY WOKEN PATIENT IS ON 2L OXYGEN SATURATING WELL. , BREATHING EVEN AND UNLABORED, NO SOB/ACUTE DISTRESS NOTED AT THIS TIME, IV SITE TO LEFT SUBCLAVIAN #20 G AND LEFT SUBCLAVIAN #22 PATENT AN INTACT, PATIENT SKIN HAS SACRAL WOUNDS AND PERINEAL WOUNDS. PATIENT ALSO HAS RIGHT HEEL REDNESS. PATIENT HAS LEFT BELOW THE KNEE AMPUTEE . LEFT HAND CELLULITIS AND HARD TO MOVE. PATIENT COMPLAINS OF HAVING TROUBLE MOVING IT . AT TIMES PATIENT IS COMPLIANT BUT OTHER TIMES IS NOT COMPLIANT WITH CARE HD SITE TO RIGHT FEMORAL IN PLACED, CALL LIGHT WITHIN REACH, SAFETY PRECAUTIONS IN PLACE, BED LOCKED AND LOW POSITION, WILL CONTINUE TO MONITOR CLOSELY.
--- NOTE | 2019-08-25 07:05 | NUR ---
RN NOTES, NO SIGNIFICANT CHANGE IN CONDITION, CONTINUE NPO FOR FURTHER EVALUATION, REFUSED BLOOD DRAWN THIS MORNING, WILL ENDORSE CONTINUITY OF CARE TO ONCOMING NURSE.
[2019-08-25] MEDS: PANTOPRAZOLE 40 MG TABLET.DR PO SCH (07:30)
[2019-08-25 08:00] VITALS: BP 100/30
[2019-08-25] MEDS: SEVELAMER CARBONATE 800 MG TABLET PO SCH ×4 (08:00→18:50)
[2019-08-25] MEDS: Z GUARD REMEDY 2 OZ OINT TP SCH ×2 (09:00→21:48)
[2019-08-25] MEDS: CLOTRIMAZOLE 1% 15 GM TUBE TP SCH ×2 (09:00→18:49)
[2019-08-25] MEDS: CINACALCET HCL 30 MG TABLET PO SCH ×2 (09:00→09:38)
[2019-08-25] MEDS: APIXABAN 2.5 MG TABLET PO SCH ×3 (09:00→18:49)
[2019-08-25] MEDS: HYDROCORTISONE SOD SUCCINATE 100 MG/2 ML VIAL IV SCH ×4 (09:00→18:49)
[2019-08-25] MEDS: BLOOD SUGAR DIAGNOSTIC 1 EACH STRIP IN SCH ×4 (09:37→21:42)
[2019-08-25] MEDS: INSULIN REGULAR, HUMAN 100 UNIT/ML 3 ML VIAL SQ PRN ×3 (09:48→21:56)
[2019-08-25] MEDS ORDERED: ALTEPLASE CATHFLO 2 MG/VIAL XX ONE (11:30)
[2019-08-25 12:00] VITALS: BP 97/54
[2019-08-25] MEDS ORDERED: QUETIAPINE FUMARATE 25 MG TABLET PO PRN (14:30)
[2019-08-25] MEDS ORDERED: MORPHINE SULFATE IR 15 MG TABLET PO PRN (14:30)
[2019-08-25 16:00] VITALS: BP_SYST 83; BP_SYST 98; BP_DIAS 36; BP_DIAS 54
--- NOTE | 2019-08-25 18:56 | NUR ---
HERPETOLOGIST NOTES -BS PATIENT BS 479 GIVEN 10 UNITS AND CALL MD PER HOSPITAL PROTOCOL ORDERED RANDOM GLUCOSE STAT
--- NOTE | 2019-08-25 19:10 | NUR ---
RN OPENING NOTE RECEIVED PATIENT IN BED RESTING, WATCHING TV. A&O X4. ABLE TO MAKE NEEDS KNOWN. BREATHING IS EVEN AND NON LABORED. NO SOB NOTED AT THIS TIME. WILL CONTINUE TO MONITOR.
--- NOTE | 2019-08-25 19:30 | NUR ---
RN MS CLOSING NOTES, PATIENT IN BED ASLEEP BUT AROUSES EASILY TO VERBAL STIMULI, , BREATHING EVEN AND UNLABORED, NO SOB/ACUTE DISTRESS NOTED AT THIS TIME, IV SITE TO LEFT SUBCLAVIAN #20 G AND LEFT SUBCLAVIAN #22 PATENT AN INTACT, HD SITE TO RIGHT FEMORAL IN PLACED, CALL LIGHT WITHIN REACH, SAFETY PRECAUTIONS IN PLACE, BED LOCKED AND LOW POSITION, WILL CONTINUE TO MONITOR CLOSELY.
[2019-08-25 20:00] VITALS: BP 94/66
--- NOTE | 2019-08-25 21:40 | NUR ---
RN NOTE PATIENT COMPLAINED OF 8/10 ACHING PAIN ON LEFT HAND. MORPHINE 30 MG PRN PO GIVEN ORDERED AND TOLERATED WELL. WILL CONTINUE TO MONITOR.
--- NOTE | 2019-08-25 22:00 | NUR ---
RN NOTE PATIENT'S BLOOD SUGAR IS 473 MG/DL. CALLED AND NOTIFIED JORGE KENNEDY NP. RECEIVED ORDERS TO ADMINISTER 10 UNITS OF HUMULIN R INSULIN AND CHANGE INSULIN SLIDING SCALE FROM MILD TO AGGRESSIVE. ORDERS NOTED AND CARRIED OUT. WILL CONTINUE TO MONITOR.
[2019-08-25] MEDS: GABAPENTIN 100 MG CAPSULE PO SCH (22:47)
[2019-08-25] MEDS ORDERED: DEXTROSE 50%-WATER 50 ML DISP.SYRIN IV PRN (23:30)
[2019-08-26] VITALS (7 sets, daily range): BP systolic 83–105; BP diastolic 44–62
--- NOTE | 2019-08-26 02:00 | NUR ---
RN NOTE PATIENT REFUSED RANDOM BLOOD GLUCOSE LEVEL X3. PATIENT IS A&O X4. INFORMED PATIENT OF RISKS AND BENEFITS, STILL PATIENT REFUSED. WILL CONTINUE TO MONITOR.
[2019-08-26] MEDS: MIDODRINE HCL (5MG) 5 MG TABLET PO SCH ×3 (04:27→21:53)
--- NOTE | 2019-08-26 07:30 | NUR ---
RN CLOSING NOTE PATIENT IS IN BED RESTING WITH HOB ELEVATED. A&O X4. BREATHING IS EVEN AND NON LABORED. IN NO APPARENT DISTRESS. ALL DUE MEDS GIVEN AND TOLERATED WELL. PATIENT IS KEPT CLEAN, DRY, AND COMFORTABLE. PATIENT REFUSED RANDOM BLOOD GLUCOSE LAB THIS SHIFT X3. CALL LIGHT IS WITHIN EASY REACH. ENDORSED TO AM SHIFT RN FOR CONTINUATION OF CARE.
--- NOTE | 2019-08-26 07:30 | NUR ---
RN OPENING NOTES RECEIVED PT IN BED,RESTING COMFORTABLE. RESPIRATION EVEN AND UNLABORED. NO SOB NOTED. DENIES ANY PAIN OR DISCOMFORT AT THE MOMENT. IV ACCESS ON L AND RIGHT SUBCLAVIAN , PATENT AND INTACT. CALL LIGHT WITHIN EASY REACH, WILL CONTINUE TO MONITOR
--- NOTE | 2019-08-26 08:00 | NUR ---
RN NOTES CRITICAL BLOOD SUGAR OF 499 MG/DL, NOTIFIED MD AND INFORMED CHARGE NURSE. CALLED PHARMACY TO BRINGTHE INSULIN.
[2019-08-26] MEDS: BLOOD SUGAR DIAGNOSTIC 1 EACH STRIP IN SCH ×4 (08:03→22:10)
[2019-08-26] MEDS: PANTOPRAZOLE 40 MG TABLET.DR PO SCH (08:15)
[2019-08-26] MEDS: INSULIN REGULAR, HUMAN 100 UNIT/ML 3 ML VIAL SQ PRN ×3 (09:10→17:32)
[2019-08-26] MEDS: SEVELAMER CARBONATE 800 MG TABLET PO SCH ×3 (09:16→18:00)
[2019-08-26] MEDS: HYDROCORTISONE SOD SUCCINATE 100 MG/2 ML VIAL IV SCH ×3 (09:16→17:26)
[2019-08-26] MEDS: APIXABAN 2.5 MG TABLET PO SCH ×2 (09:18→17:27)
[2019-08-26] MEDS: CLOTRIMAZOLE 1% 15 GM TUBE TP SCH ×2 (09:24→17:40)
[2019-08-26] MEDS: Z GUARD REMEDY 2 OZ OINT TP PRN ×2 (09:24→22:01)
[2019-08-26] MEDS: Z GUARD REMEDY 2 OZ OINT TP SCH ×2 (09:25→21:00)
[2019-08-26 09:50] LABS: CALCIUM, SERUM 8.9 mg/dL (8.5-10.1)
[2019-08-26 09:56] LABS: POTASSIUM 6.2 mmol/L (3.5-5.1)
[2019-08-26 09:57] LABS: CREATININE 11.8 mg/dL (0.6-1.3)
[2019-08-26] MEDS: INSULIN NPH, HUMAN ISOPHANE 100 UNIT/ML VIAL SQ SCH ×2 (12:40→17:30)
--- NOTE | 2019-08-26 18:00 | NUR ---
RN CLOSING NOTES PATIENT IN BED, RESTING COMFORTABLY. NO SOB NOTED. DENIES ANY PAIN AT THE MOMENT. NO BOWEL MOVEMENT DURING AM SHIFT. HAD DIALYSIS TODAY AND TOOK 2L. REPOSITIONED PER PROTOCOL. KEPT CLEAN AND DRY. ALL NEEDS MET. ENDORSED TO PM RN.
--- NOTE | 2019-08-26 20:20 | NUR ---
MONTESSORI TEACHER OPENING NOTES PATIENT RECEIVED RESTING IN BED A/O x3. PATIENT ON 2L OF O2 VIA NC BREATHING EVEN AND UNLABORED, NO SOB NOTED. NO SIGNS OF ACUTE DISTRESS. NO CURRENT COMPLAINTS OF PAIN OR DISCOMFORT. IV LOCATED ON L AND R SUBCLAVIAN AND PERMA CATH NOTED ON R FEMORAL. SAFETY PRECAUTIONS IN PLACE WITH BED IN LOWEST POSITION, CALL LIGHT WITHIN REACH, BREAKS ON, SIDE RAILS UP X2. WILL CONTINUE TO MONITOR.
[2019-08-26] MEDS: GABAPENTIN 100 MG CAPSULE PO SCH (21:53)
[2019-08-26] MEDS: *INSULIN REGULAR(HUMULIN R)HUM 100 UNIT/ML VIAL SQ PRN (22:14)
--- NOTE | 2019-08-26 22:20 | NUR ---
FILM TOUCH UP INSPECTOR NOTES PATIENT BLOOD SUGAR 234, 4 UNITS OF INSULIN GIVEN.
[2019-08-27] VITALS: BP 83/62
[2019-08-27 04:00] VITALS: BP 91/51
[2019-08-27] MEDS: MIDODRINE HCL (5MG) 5 MG TABLET PO SCH ×3 (04:46→21:25)
[2019-08-27] MEDS: BLOOD SUGAR DIAGNOSTIC 1 EACH STRIP IN SCH ×4 (06:30→22:05)
[2019-08-27] MEDS: INSULIN REGULAR, HUMAN 100 UNIT/ML 3 ML VIAL SQ PRN ×2 (06:33→11:43)
--- NOTE | 2019-08-27 06:35 | NUR ---
TIRE BUILDER OPERATOR CLOSING NOTES PATIENT CURRENTLY RESTING IN BED A/O X 3. ON 2L OF O2 VIA NC BREATHING EVEN AD UNLABORED. TELE RADING SINUS RHYTHM WITH INVERTED P WAVES AT 73 HR. IV LOCATED ON L AND R SUBCLAVIAN. PERMACATH LOCATED ON RIGHT FEMORAL. PATIENT WAS KEPT CLEAN AND DRY THROUGHOUT THE NIGHT, ALL NEEDS ATTENDED TO. WOUND CARE WAS DONE. SAFETY PRECAUTIONS IN PLACE WITH BED IN LOWEST POSITION, BREAKS ON, SIDE RAILS UP X2, AND CALL LIGHT WITHIN REACH. WILL ENDORSE TO ONCOMING SHIFT ABOUT ALYSSA.
[2019-08-27 08:00] VITALS: BP 110/68
[2019-08-27] MEDS: HYDROCORTISONE SOD SUCCINATE 100 MG/2 ML VIAL IV SCH ×3 (09:23→17:29)
[2019-08-27] MEDS: SEVELAMER CARBONATE 800 MG TABLET PO SCH ×3 (09:23→17:29)
[2019-08-27] MEDS: PANTOPRAZOLE 40 MG TABLET.DR PO SCH (09:23)
[2019-08-27] MEDS: CINACALCET HCL 30 MG TABLET PO SCH (09:24)
[2019-08-27] MEDS: APIXABAN 2.5 MG TABLET PO SCH ×2 (09:24→17:32)
[2019-08-27] MEDS: INSULIN NPH, HUMAN ISOPHANE 100 UNIT/ML VIAL SQ SCH ×2 (09:26→17:53)
[2019-08-27] MEDS: CLOTRIMAZOLE 1% 15 GM TUBE TP SCH ×2 (09:31→17:29)
[2019-08-27] MEDS: Z GUARD REMEDY 2 OZ OINT TP SCH ×2 (09:31→21:54)
[2019-08-27 12:00] VITALS: BP 128/72
--- NOTE | 2019-08-27 12:00 | NUR ---
RN NOTE PAITNET TRANSFERED TO RONA HOOKER. PATIENT ALERT ORIENTED STABLE AD ALL NEEDS MET AT THIS TIME TO GET DIALIZED TODAY. DIAPER IV PATENT SUBCLAVIAN IV PATENT AND FLUSHING. ALL NEEDS MET ENDORSED TO MACHINE LOAD CLERK.
[2019-08-27 13:50] LABS: CALCIUM, SERUM 8.5 mg/dL (8.5-10.1); CREATININE 5.2 mg/dL (0.6-1.3); POTASSIUM 3.2 mmol/L (3.5-5.1)
[2019-08-27 16:00] VITALS: BP 118/68
--- NOTE | 2019-08-27 19:13 | NUR ---
RN NOTES: RECEIVED AWAKE ON BED, A/OX3-4, COMMUNICATE WELL AND VERBALIZE NEEDS,ON TELE MONITOR -[id number], ON O2 AT 2L/MIN VIA NC SPO2-99%, LEFT SUBCLAVIAN CATH G#22, RIGHT SUBCLAVIAN CATH G#20,ON HEMODIALYSIS,DONE TODAY,NO-OUTPUT; RIGHT FEMORAL CATH DRESSING INTACT,ANURIC. ISOLATION PRECAUTION FOR MRSA-NARES, ORIENTED TO UNIT AND STAFF, BED LOW AND LOCKED, CALL LIGHT WITHIN EASY REACH, FALL,SAFETY AND ASPIRATION PRECAUTION OBSERVED. LEFT ARM KEPT ELEVATED ABOVE THE HEART.
--- NOTE | 2019-08-27 19:30 | NUR ---
RN CLOSING NOTE RN ENDORSE TO PRESS SHOP SUPERVISOR. IVS FLUSHING ALLL NEEDS MET DIALIZED 0 OUT TODAY. ISHMAEL OK FOR D/C TOMORROW IF PRIMARY OK TO D/C . ENDORSE TO PRESS SHOP SUPERVISOR
[2019-08-27 20:00] VITALS: BP 104/50
[2019-08-27] MEDS: GABAPENTIN 100 MG CAPSULE PO SCH (21:26)
[2019-08-27] MEDS: *INSULIN REGULAR(HUMULIN R)HUM 100 UNIT/ML VIAL SQ PRN (22:08)
--- NOTE | 2019-08-27 22:10 | NUR ---
RN NOTES: BLOOD SUGAR CHECK 326, INSULIN GIVEN PER SCALE, WILL CONTINUE TO MONITOR FOR SIGN OF HYPER/HYPOGLYCEMIA.
[2019-08-28] VITALS: BP 126/52
[2019-08-28 04:00] VITALS: BP 110/42
[2019-08-28] MEDS: MIDODRINE HCL (5MG) 5 MG TABLET PO SCH ×2 (06:13→13:45)
--- NOTE | 2019-08-28 06:13 | NUR ---
RN NOTES: UNABLE TO GIVE MIDODRINE ON TIME BECAUSE PATIENT REFUSE TO WAKE AT 0500, SHE ONLY WANT TO TAKE HER MEDICATION AFTER 0600.GIVEN.
--- NOTE | 2019-08-28 06:28 | NUR ---
RN NOTES: TRIED TO WAKE HER UP TO DO MORNING AND CARE AND DRESSING, DONE 2X AND SHE STRONGLY REFUSED, SHE ONLY WANT TO DO IT LATER AFTER HER BREAKFAST. THEN SHE GO BACK TO SLEEP.
--- NOTE | 2019-08-28 07:10 | NUR ---
BEER MAKER OPENING NOTES PATIENT RECEIVED RESTING IN BED A/O x3. PATIENT ON 2L OF O2 VIA NC BREATHING EVEN AND UNLABORED, NO SOB NOTED. NO SIGNS OF ACUTE DISTRESS. NO CURRENT COMPLAINTS OF PAIN OR DISCOMFORT. IV LOCATED ON L AND R SUBCLAVIAN AND PERMA CATH NOTED ON R FEMORAL. SAFETY PRECAUTIONS IN PLACE WITH BED IN LOWEST POSITION, CALL LIGHT WITHIN REACH, BREAKS ON, SIDE RAILS UP X2 AND AT SEMI-LEAHY'S POSITION. WILL CONTINUE TO MONITOR.
[2019-08-28] MEDS: BLOOD SUGAR DIAGNOSTIC 1 EACH STRIP IN SCH ×2 (07:30→12:35)
[2019-08-28] MEDS: PANTOPRAZOLE 40 MG TABLET.DR PO SCH (07:30)
--- NOTE | 2019-08-28 07:52 | NUR ---
RN NOTES: PATIENT REFUSED TO BE DISTURBED, WHEN MANAGER FINANCIAL REPORTING CAME AT 0620, SHE STRONGLY REFUSED FOR BLOOD TEST AND SHE CLAIMED SHE WILL BE GOING HOME TODAY.BED LOW AND LOKCED, CALL LIGHT WITHIN EASY REACH, ENDORSED FOR CONTINUITY OF CARE.
[2019-08-28 08:00] VITALS: BP 124/68
--- NOTE | 2019-08-28 08:30 | NUR ---
RN NOTE: CONTACTED DR. DONALDSON REGARDING PATIENT'S REQUEST TO BE DISCHARGED TODAY. SAID HE WILL DO HIS ROUNDS. PATIENT MADE AWARE, ACKNOWLEDGED BUT VERBALIZE INTENTION TO LEAVE BY 12PM WITH OR WITHOUT BEEN SEEN BY THE MD.
[2019-08-28] MEDS: SEVELAMER CARBONATE 800 MG TABLET PO SCH ×2 (09:00→13:45)
[2019-08-28] MEDS: CLOTRIMAZOLE 1% 15 GM TUBE TP SCH (09:00)
[2019-08-28] MEDS: Z GUARD REMEDY 2 OZ OINT TP SCH (09:00)
[2019-08-28] MEDS: INSULIN NPH, HUMAN ISOPHANE 100 UNIT/ML VIAL SQ SCH (10:00)
[2019-08-28] MEDS: HYDROCORTISONE SOD SUCCINATE 100 MG/2 ML VIAL IV SCH ×2 (10:00→13:44)
[2019-08-28] MEDS: APIXABAN 2.5 MG TABLET PO SCH (10:00)
[2019-08-28] MEDS: CINACALCET HCL 30 MG TABLET PO SCH (10:00)
--- NOTE | 2019-08-28 11:00 | NUR ---
RN NOTE: PATIENT REFUSED SCHEDULED AM MEDICATIONS. RISKS AND BENEFITS EXPLAINED, OFFERED X3. PATIENT STILL REFUSED.
[2019-08-28 12:00] VITALS: BP 110/76
--- NOTE | 2019-08-28 12:00 | NUR ---
RN NOTE: PATIENT BLOOD SUGAR IS 497. NOTED TO HAVE EATEN BREAKFAST LATE WITHIN AN HOUR. PATIENT WITH NO ADVERSE REACTIONS TO HYPERGLYCEMIA. WILL RE CHECK SOON.
--- NOTE | 2019-08-28 12:30 | NUR ---
RN NOTE: RECHECKED PATIENT'S BS LEVEL AND AT 510. SPOKE TO DR. DONALDSON REGARDING PATIENT'S CURRENT BLOOD SUGAR. 20 UNITS OF REGULAR INSULIN ALREADY GIVEN AFTER RECHECK. ORDER FOR 20 UNITS OF ONE TIME NPH SINCE PATIENT REFUSED SCHEDULED 9AM DOSE AND PRESCRIPTION UPON DISCHARGE THIS AFTERNOON GIVEN. PATIENT ACCEPTED AND ACKNOWLEDGED ORDERS. INSULIN NPH GIVEN
[2019-08-28] MEDS: INSULIN REGULAR, HUMAN 100 UNIT/ML 3 ML VIAL SQ PRN (12:34)
[2019-08-28] MEDS ORDERED: INSULIN NPH, HUMAN ISOPHANE 100 UNIT/ML VIAL SQ ONE (13:00)
[2019-08-28 13:45] VITALS: BP 110/76
--- NOTE | 2019-08-28 15:45 | NUR ---
RIGGING LOFT MECHANIC NOTE: PATIENT DISCHARGED WITH AND SON. SEEN BY DR. DONALDSON EARLIER ON SHIFT AND DISCUSSED DISCHARGE PLAN OF CARE. PATIENT ACKNOWLEDGED AND VERALIZED UNDERSTANDING. BELONGING FORMS, DISCHARGE INSTRUCTIONS, HOME MEDICATIONS AND PRESCRIPTION WERE GIVEN TO PATIENT. VERBALIZED UNDERSTANDING ON DISCHARGE INSTRUCTIONS. IV SITES DISCONTINUED, NO BLEEDING./ ADVERSE EFFECTS NOTED. LEFT HOSPITAL IN STABLE CONDITION VIA PRIVATE CAR.
== END 2019-08-28 15:09 | disposition home or self-care (01) | DRG 602 ==
LOC: MEDSG2 22:36 → MEDSG1 08-24 11:37 → TELE1 08-24 11:40
PROVIDERS: ADMIT Nurse Practitioner Acute Care; ATTEND Internal Medicine
PROC: 5A1D70Z Performance of Urinary Filtration, Intermittent, Less than 6 Hours Per Day (ICD-10-PCS; principal; 2019-08-20)
DX: L03.114 Cellulitis of left upper limb (principal); N18.6 End stage renal disease; I82.623 Acute embolism and thrombosis of deep veins of upper extremity, bilateral; E87.1 Hypo-osmolality and hyponatremia; I82.890 Acute embolism and thrombosis of other specified veins; Z99.2 Dependence on renal dialysis; Z86.718 Personal history of other venous thrombosis and embolism; I25.10 Atherosclerotic heart disease of native coronary artery without angina pectoris; E87.6 Hypokalemia; E10.22 Type 1 diabetes mellitus with diabetic chronic kidney disease; D63.1 Anemia in chronic kidney disease; E83.39 Other disorders of phosphorus metabolism; E83.52 Hypercalcemia; L30.4 Erythema intertrigo; Z79.01 Long term (current) use of anticoagulants; Z95.5 Presence of coronary angioplasty implant and graft; Z89.512 Acquired absence of left leg below knee; R04.0 Epistaxis; E10.51 Type 1 diabetes mellitus with diabetic peripheral angiopathy without gangrene; N25.0 Renal osteodystrophy; L98.8 Other specified disorders of the skin and subcutaneous tissue; Z91.14 Patient's other noncompliance with medication regimen; I50.9 Heart failure, unspecified; Z79.4 Long term (current) use of insulin; E66.9 Obesity, unspecified; Z68.32 Body mass index [BMI] 32.0-32.9, adult
CPT/HCPCS: 36415; 71045-TC; 73200-TC; 80048-TC; 80053-TC; 80061-TC; 80074; 80202-TC; 82962-TC; 83735-TC; 84100-TC; 85025-TC; 85610-TC; 85730-TC; 87081-TC; 90935-TC; 93307-TC; 93930-TC; A4216; A4217; G0378; J1200; J1644; J1720; J1815; J1885; J2270; J2543; J2997; J3370; J7050; J7060; P9047